=== PATIENT | male | born 1980 | race Caucasian/White ===

== ENCOUNTER 2016-12-21 20:33 | Emergency (ER) | payer BC ==
[~2016-12-21] VITALS: Ht 177.8 cm; Wt 99.0 kg
[2016-12-21 20:36] VITALS: Ht 177.8 cm; Wt 99.0 kg
[2016-12-21] MEDS ORDERED: KETOROLAC 30 MG INJ IM STA (21:05)
[2016-12-21] MEDS ORDERED: CYCL-319 PO (21:13)
[2016-12-21] MEDS ORDERED: HYDR-906 PO (21:13)
[2016-12-21] MEDS ORDERED: NAPR-260 PO (21:13)
--- NOTE | 2016-12-21 22:48 | ERD ---
ER Documentation Chief Complaint Chief Complaint bib self, cc: back pain s/p back exercise on friday HPI Patient is a 36-year-old male presenting to the emergency department with complaints of bilateral mid back pain ongoing intermittently for the past 3 days after injury while lifting weights. Symptoms are worsening. He took Flexeril from an old injury with no relief. He denies loss of bowel or bladder function. He denies other symptoms or injuries at this time. ROS All systems reviewed and are negative except as per history of present illness. Medications Home Meds Active Scripts Naproxen* (Naprosyn*) 500 Mg Tablet, 500 MG PO BID Y for PAIN AND/OR INFLAMMATION, #20 TAB Prov:CHRIS ZEPEDA PA-C 12/21/16 Cyclobenzaprine Hcl* (Cyclobenzaprine Hcl*) 10 Mg Tablet, 10 MG PO TID, #15 TAB Prov:CHRIS ZEPEDA PA-C 12/21/16 Hydrocodone/Acetaminophen (Letona 5-325 Tablet) 1 Each Tablet, 1 TAB PO Q6H Y for PAIN, #7 TAB Prov:CHRIS ZEPEDA PA-C 12/21/16 Allergies Allergies: Coded Allergies: No Known Allergy (Unverified , 12/21/16) PMhx/Soc Medical and Surgical Hx: pt denies Surgical Hx Hx Alcohol Use: No Hx Substance Use: No Hx Tobacco Use: No Smoking Status: Never smoker Physical Exam Vitals Vital Signs Date Time Temp Pulse Resp B/P Pulse Ox O2 Delivery O2 Flow Rate FiO2 12/21/16 20:36 98.5 81 18 161/81 100 Physical Exam Const: Nontoxic, well-appearing male in no acute distress. Head: Atraumatic Eyes: Normal Conjunctiva ENT: Normal External Ears, Nose and Mouth. Neck: Full range of motion..~ No meningismus. Resp: Clear to auscultation bilaterally Cardio: Regular rate and rhythm, no murmurs Skin: No petechiae or rashes Back: No midline or flank tenderness. There is no paraspinal tenderness. Ext: No cyanosis, or edema Neur: Awake and alert Psych: Normal Mood and Affect Results 24 hrs Current Medications Medications (Trade) Dose Ordered Sig/Tania Route PRN Reason Start Time Stop Time Status Last Admin Dose Admin Ketorolac Tromethamine (Toradol) 30 mg ONCE STAT IM 12/21/16 21:05 12/21/16 21:07 DC 12/21/16 21:10 Procedures/MDM 36-year-old male presents to the emergency department with complaints of back pain. The patient was treated in the department Toradol and he is feeling improved prior to discharge. History and physical examination is consistent with a paraspinal thoracic back sprain versus strain. The patient was stable for outpatient management with a prescription for naproxen, Flexeril, and Letona. Low suspicion for cauda equina, epidural abscess, or other emergent conditions. The patient may return immediately for any new or worsening symptoms. The patient is to follow-up with his primary care physician within 1- 2 days. Departure Diagnosis: Primary Impression: Back pain Condition: Fair Patient Instructions: Back Pain (Acute Or Chronic) Referrals: [facility] YOU HAVE RECEIVED A MEDICAL SCREENING EXAM AND THE RESULTS INDICATE THAT YOU DO NOT HAVE A CONDITION THAT REQUIRES URGENT TREATMENT IN THE EMERGENCY DEPARTMENT. FURTHER EVALUATION AND TREATMENT OF YOUR CONDITION CAN WAIT UNTIL YOU ARE SEEN IN YOUR DOCTORS OFFICE WITHIN THE NEXT 1-2 DAYS. IT IS YOUR RESPONSIBILITY TO MAKE AN APPOINTMENT FOR FOLOW-UP CARE. IF YOU HAVE A PRIMARY DOCTOR --you should call your primary doctor and schedule an appointment IF YOU DO NOT HAVE A PRIMARY DOCTOR YOU CAN CALL OUR PHYSICIAN REFERRAL HOTLINE AT IF YOU CAN NOT AFFORD TO SEE A PHYSICIAN YOU CAN CHOSE FROM THE FOLLOWING [facility] [address] [facility]. [facility] [address] [facility]. [facility] [address] [facility]. [facility] [address] [facility]. [facility] [address] [facility]. [facility] [address] Additional Instructions: Follow up with your PCP within the next 1-3 days for a repeat evaluation. If you require a referral to a specialist, your Primary Care Provider may be able to provide this for you. In most patient cases, a referral is not required. If you have further questions regarding this matter, please ask your Primary Care Provider. Return the the emergency department immediately if symptoms worsen or change. If you have any questions regarding medications, ask your pharmacist or us before you leave. If any adverse reactions, occur while taking your medications, discontinue the treatment and return to the emergency department immediately. If any new or worsening symptoms, uncontrolled fevers, or other unexplained symptoms occur, return to the emergency department immediately. Take your medications as directed, and complete the entire course of treatment. CHRIS ZEPEDA PA-C Dec 21, 2016 22:48
== END 2016-12-21 21:22 | disposition home or self-care (01) ==
LOC: FTE 20:33
DX: M54.6 Pain in thoracic spine (principal)
CPT/HCPCS: 96372; 99284; J1885

== ENCOUNTER 2016-12-24 12:17 | Emergency (ER) | payer BC ==
[~2016-12-24] VITALS: Ht 175.3 cm; Wt 101.5 kg
[~2016-12-24 12:17] MED LIST: CYCL-319 PO; HYDR-906 PO; NAPR-260 PO
[2016-12-24 12:25] VITALS: Ht 175.3 cm; Wt 101.5 kg
[2016-12-24] MEDS ORDERED: morphine 4 MG/ML VIAL IM STA (13:35)
--- NOTE | 2016-12-24 15:19 | RADRPT ---
PROCEDURE: XR Thoracic Spine 2 Views. CLINICAL INDICATION: Back pain. TECHNIQUE: Thoracic spine study including AP and lateral views was performed. COMPARISON: No prior studies are available for comparison. FINDINGS: Thoracic spine demonstrates a normal kyphosis . No fractures or destructive bony lesions are obser chad. Intervertebral disk heights appear normal. Soft tissues surrounding the spine appear normal. IMPRESSION: Unremarkable thoracic spine. If further characterization is needed CT or MRI could be helpful. If there is high clinical suspicion for traumatic injury, further evaluation with CT should be consi dered. RPTAT: AA .Alfredo Farmer MD, MD Date Time Electronically viewed and signed by .Alfredo Farmer MD, MD on 12/24/2016 15:19 .P/
--- NOTE | 2016-12-24 15:20 | RADRPT ---
PROCEDURE: XR Lumbar Spine 3 Views. CLINICAL INDICATION: Low back pain. TECHNIQUE: Lumbar spine study including AP, lateral and coned L5-S1 views was performed. COMPARISON: No prior studies are available for comparison. FINDINGS: Straightening of the normal lordosis is identified. No fractures or destructive bony lesions are ob served. Mild intervertebral disc space narrowing is identified T12-L3. The facet joints are unrema rkable. Soft tissues surrounding the spine appear normal. IMPRESSION: Straightening of the normal lordosis. This could be positional in nature. Mild degenerative disc disease from T12-L3. If further characterization is needed CT or MRI could be helpful. If there is high clinical suspicion for traumatic injury, further evaluation with CT should be consi dered. RPTAT: AA .Alfredo Farmer MD, MD Date Time Electronically viewed and signed by .Alfredo Farmer MD, MD on 12/24/2016 15:20 .P/
[2016-12-24] MEDS ORDERED: HYDR-906 PO (15:24)
[2016-12-24 15:50] VITALS: BP 124/75; PULSE 68; RESP 19
--- NOTE | 2016-12-24 16:39 | ERD ---
ER Documentation Chief Complaint Chief Complaint low back pain since last after going back to gym. hx injury there HPI Patient is a 36-year-old male presenting to the emergency department with complaints of low back pain intermittently for the past 5 days ago. He states he did come 5 days ago after injury at the gym while lifting weights. He received prescriptions for [place], Flexeril, and naproxen. He only had mild relief with prescription medications. [place] provided the most relief. He denies any loss of bowel or bladder function, difficulty ambulating, or other symptoms at this time. ROS All systems reviewed and are negative except as per history of present illness. Medications Home Meds Active Scripts Hydrocodone/Acetaminophen ([place] 5-325 Tablet) 1 Each Tablet, 1 TAB PO Q6H Y for PAIN, #12 TAB Prov:CHRIS ZEPEDA PA-C 12/24/16 Naproxen* (Naprosyn*) 500 Mg Tablet, 500 MG PO BID Y for PAIN AND/OR INFLAMMATION, #20 TAB Prov:CHRIS ZEPEDA PA-C 12/21/16 Cyclobenzaprine Hcl* (Cyclobenzaprine Hcl*) 10 Mg Tablet, 10 MG PO TID, #15 TAB Prov:CHRIS ZEPEDA PA-C 12/21/16 Hydrocodone/Acetaminophen ([place] 5-325 Tablet) 1 Each Tablet, 1 TAB PO Q6H Y for PAIN, #7 TAB Prov:CHRIS ZEPEDA PA-C 12/21/16 Allergies Allergies: Coded Allergies: No Known Allergy (Unverified , 12/24/16) PMhx/Soc Medical and Surgical Hx: pt denies Medical Hx Hx Alcohol Use: No Hx Substance Use: No Hx Tobacco Use: No Smoking Status: Never smoker Physical Exam Vitals Vital Signs Date Time Temp Pulse Resp B/P Pulse Ox O2 Delivery O2 Flow Rate FiO2 12/24/16 15:50 68 19 124/75 100 Room Air 12/24/16 12:25 97.5 110 18 161/97 96 Physical Exam Const: Nontoxic, well-appearing male in no acute distress. Head: Atraumatic Eyes: Normal Conjunctiva ENT: Normal External Ears, Nose and Mouth. Skin: No petechiae or rashes Back: Tenderness to palpation of the paraspinal muscles of the lumbar spine bilaterally. Ext: No cyanosis, or edema Neur: Awake and alert Psych: Normal Mood and Affect Results 24 hrs Current Medications Medications (Trade) Dose Ordered Sig/Tania Route PRN Reason Start Time Stop Time Status Last Admin Dose Admin Morphine Sulfate (morphine) 4 mg ONCE STAT IM 12/24/16 13:35 12/24/16 13:36 DC 12/24/16 13:48 Procedures/MDM 36-year-old male presents to the emergency department with complaints of back pain. Since this was the second visit for this patient's complaints, I did order imaging, which showed no significant acute abnormalities. Low suspicion for cauda equina or other emergent conditions. The patient was treated in the department with IM morphine and he was feeling improved prior to discharge. He was given a prescription for [place]. He agreed with the discharge plan a diagnosis. His questions and concerns were addressed. He was advised to follow -up with his primary care physician within the next 1-2 days. He is to return here immediately with any new or worsening symptoms. PROCEDURE: XR Lumbar Spine 3 Views. CLINICAL INDICATION: Low back pain. TECHNIQUE: Lumbar spine study including AP, lateral and coned L5-S1 views was performed. COMPARISON: No prior studies are available for comparison. FINDINGS: Straightening of the normal lordosis is identified. No fractures or destructive bony lesions are observed. Mild intervertebral disc space narrowing is identified T12-L3. The facet joints are unremarkable. Soft tissues surrounding the spine appear normal. IMPRESSION: Straightening of the normal lordosis. This could be positional in nature. Mild degenerative disc disease from T12-L3. If further characterization is needed CT or MRI could be helpful. If there is high clinical suspicion for traumatic injury, further evaluation with CT should be considered. RPTAT: AA .Alfredo Farmer MD, MD Date Time Electronically viewed and signed by .Alfredo Farmer MD, on 12/24/2016 15:20 PROCEDURE: XR Thoracic Spine 2 Views. CLINICAL INDICATION: Back pain. TECHNIQUE: Thoracic spine study including AP and lateral views was performed. COMPARISON: No prior studies are available for comparison. FINDINGS: Thoracic spine demonstrates a normal kyphosis . No fractures or destructive bony lesions are observed. Intervertebral disk heights appear normal. Soft tissues surrounding the spine appear normal. IMPRESSION: Unremarkable thoracic spine. If further characterization is needed CT or MRI could be helpful. If there is high clinical suspicion for traumatic injury, further evaluation with CT should be considered. RPTAT: AA .Alfredo Farmer MD, MD Date Time Electronically viewed and signed by .Alfredo Farmer MD, MD on 12/24/2016 15:19 Departure Diagnosis: Primary Impression: Back pain Back pain location: low back pain Chronicity: unspecified Back pain laterality: unspecified Sciatica presence: unspecified whether sciatica present Qualified Code: M54.5 - Low back pain, unspecified back pain laterality, unspecified chronicity, with sciatica presence unspecified Condition: Fair Patient Instructions: Back Pain (Acute Or Chronic) Referrals: [facility] YOU HAVE RECEIVED A MEDICAL SCREENING EXAM AND THE RESULTS INDICATE THAT YOU DO NOT HAVE A CONDITION THAT REQUIRES URGENT TREATMENT IN THE EMERGENCY DEPARTMENT. FURTHER EVALUATION AND TREATMENT OF YOUR CONDITION CAN WAIT UNTIL YOU ARE SEEN IN YOUR DOCTORS OFFICE WITHIN THE NEXT 1-2 DAYS. IT IS YOUR RESPONSIBILITY TO MAKE AN APPOINTMENT FOR FOLOW-UP CARE. IF YOU HAVE A PRIMARY DOCTOR --you should call your primary doctor and schedule an appointment IF YOU DO NOT HAVE A PRIMARY DOCTOR YOU CAN CALL OUR PHYSICIAN REFERRAL HOTLINE AT IF YOU CAN NOT AFFORD TO SEE A PHYSICIAN YOU CAN CHOSE FROM THE FOLLOWING [facility] [address] [facility] [address] [facility] [address] [facility] [address] [facility]. [facility] [address] [facility]. [facility]. [address] Additional Instructions: Follow up with your PCP within the next 1-3 days for a repeat evaluation. If you require a referral to a specialist, your Primary Care Provider may be able to provide this for you. In most patient cases, a referral is not required. If you have further questions regarding this matter, please ask your Primary Care Provider. Return the the emergency department immediately if symptoms worsen or change. If you have any questions regarding medications, ask your pharmacist or us before you leave. If any adverse reactions, occur while taking your medications, discontinue the treatment and return to the emergency department immediately. If any new or worsening symptoms, uncontrolled fevers, or other unexplained symptoms occur, return to the emergency department immediately. Take your medications as directed, and complete the entire course of treatment. CHRIS ZEPEDA PA-C Dec 24, 2016 16:39
== END 2016-12-24 15:51 | disposition home or self-care (01) ==
LOC: FTE 12:17
DX: M54.5 Low back pain (principal)
CPT/HCPCS: 72072; 72100; 96372; 99284; J2270